=== PATIENT | female | born 1935 | race Caucasian/White ===

== ENCOUNTER 2024-04-16 22:42 | Inpatient (IN) | payer OTHER, SELFPAY ==
[2024-04-16] VITALS (14 sets, daily range): BP systolic 104–125; BP diastolic 62–90; BMI 25.0
[2024-04-16 17:01] LABS: % Basophils 0.3 % (0-2); % Eosinophils 0.8 % (0-6); % Immature Granulocytes 0.8 % (0-0.5); % Lymphocytes 16.9 % (20.5-51.1); % Monocytes 7.1 % (1.7-9.3); % Neutrophils 74.1 % (42.2-75.2); Absolute Eosinophils 0.1 10^3/uL (0-0.7); Absolute Immature Granulocytes 0.1 10^3/uL (0-0.05); Absolute Lymphocytes 2.4 10^3/uL (1.2-3.4); Absolute Neutrophils 10.5 10^3/uL (1.4-6.5); Hematocrit 32.5 % (37.0-47.0); Mean Corp Hgb Conc. 33.8 g/dL (33.0-37.0); Mean Corpuscular Hgb 30.8 pg (27.0-31.0); Mean Platelet Volume 10.2 fL (7.4-10.4); Nucleated Red Blood Cells % 0 %; Platelet Count 287 10^3/uL (130-400); Red Blood Cell Count 3.57 10^6/uL (4.20-5.40); Red Cell Dist. Width 12.7 % (11.5-14.5); White Blood Cell Count 14.2 10^3/uL (4.8-10.8)
[2024-04-16 17:30] LABS: Blood Urea Nitrogen 61 mg/dl (7-17); Estimated Creatinine Clearance 38 ml/min; Glucose 163 mg/dl (70-99); eGFR > 60.00
[2024-04-16 17:31] LABS: Calcium 8.7 mg/dl (8.4-10.2); Carbon Dioxide 22 mmol/L (22-30); Chloride 99 mmol/L (98-107); Sodium 133 mmol/L (135-145)
[2024-04-16 18:14] LABS: Urine Albumin 2+ (Neg - Trace); Urine Bilirubin Negative (Negative); Urine Character Slightly Cloudy (Clear); Urine Color Yellow; Urine Glucose Negative (Negative); Urine Ketone 1+ (Negative); Urine Leukocyte 3+ (Negative); Urine Nitrite Negative (Negative); Urine Occult Blood 1+ (Negative); Urine Specific Gravity 1.015 (<1.030); Urine Urobilinogen 1+ (Neg - 1+)
[2024-04-16 18:25] LABS: Urine Squamous Cell 0-2 /LPF (Few)
[2024-04-16 18:26] LABS: Urine Bacteria Many (Negative); Urine Red Blood Cell 0-2 /HPF (0-2); Urine White Cell >100 /HPF (0-5)
[2024-04-16 18:57] LABS: Albumin 3.5 g/dl (3.5-5.0); Blood Urea Nitrogen 61 mg/dl (7-17); Chloride 99 mmol/L (98-107); Potassium 4.4 mmol/L (3.5-5.1); Sodium 134 mmol/L (135-145); Total Bilirubin 0.8 mg/dl (0.2-1.3)
[2024-04-16 19:30] LABS: ALT (SGPT) 20 U/L (0-35); AST (SGOT) 27 U/L (14-36); Alkaline Phosphatase 153 U/L (38-126); Carbon Dioxide 21 mmol/L (22-30); Estimated Creatinine Clearance 38 ml/min; Glucose 139 mg/dl (70-99); Total Protein 6.2 g/dl (6.3-8.2); eGFR > 60.00
--- NOTE | 2024-04-16 19:50 | ED.GENMED ---
History of Present Illness
General
Chief Complaint: Weakness
Source: patient and pen[facility]iary records
Exam Limitations: clinical condition
Time Seen by Provider: 04/16/24 16:12
History of Present Illness
History of Present Illness:
89-year-old female who presents with change in mental status. Patient reportedly has had increased lethargy and poor appetite over the last week. No report of vomiting. Recent humerus fracture appreciated. Patient offers no complaints but her
history is somewhat limited
Past History
Past History
ED Past Medical History: HTN, Hypercholesterolemia and Other (Dementia)
ED Past Surgical History: Other
Social History
Tobacco: Non-smoker
Alcohol: None
Drug: None
Personal:
Living: with family
Employment: Retired
Family History
Family History: Other
Phy Exam
Physical Exam
Physical Exam:
CONSTITUTIONAL Vital signs reviewed, Patient alert but somnolent
HEAD atraumatic, normocephalic.
EYES eyelids normal to inspection, Extraocular muscles intact, Conjunctiva normal, Sclera normal.
NECK normal range of motion, Trachea midline, no jugular venous distention.
RESP no respiratory distress
BACK No obvious deformities, sacral wound noted
UPPER EXTREMITY right upper extremity in sling. Moderate to significant ecchymosis at various stages of healing noted to the humeral region down to the elbow.
NEURO Speech slow and low tone, No obvious focal motor deficits include, Cranial Nerves intact to screening exam.
SKIN Skin warm, dry, and normal in color.
Course
Orders/Labs/Results
Orders:
Orders
04/16/24 16:24
CT Head W/o Iv Contrast Urgent
Comment:
Reason For Exam: recent fall, change in ms
04/16/24 16:46
Basic Metabolic Panel Urgent
Complete Blood Count/With Diff Urgent
04/16/24 18:06
Urinalysis Reflex To Culture Urgent
Date Specimen was Collected: 04/16/24
Time Specimen was Collected: 18:05
Urine Microscopic Reflex Cult Urgent
Urine Culture Urgent
FINESSE Source: U
Specimen Description:
Date Specimen was Collected: 04/16/24
Time Specimen was Collected: 18:05
04/16/24 18:32
Comprehensive Metabolic Panel Urgent
04/16/24 19:50
0.9% Sodium Chloride 1000 ml [Nss] 1,000 ml IV BOLUS
CefTRIAXone [Rocephin] 1,000 mg IV NOW STA
04/16/24 21:40
US Periph Venous LOWER Ext LT Urgent
Comment:
Reason For Exam: Asymmetric Edema, r/o DVT
04/16/24 21:50
Blood Culture Q30M
FINESSE Source: Blood/Venous
Specimen Description:
Blood Culture Q30M
FINESSE Source: Blood/Venous
Specimen Description:
04/16/24 21:52
Lactic Acid Q4H
Comment: CANCEL 2nd LACTIC ACID IF 1st LACTIC ACID IS LESS THAN 2
04/16/24 21:58
Admit/Transfer Patient As Directed
Co-Sign Provider:
Level of Care: Inpatient admission
Assign to:: Telemetry
Physician / Group: Gunnar
Diagnosis: UTI, Azotemia, Weakness
Reason for Telemetry: Arrhythmia
Date to Stop Telemetry: 04/19/24
Time to Stop Telemetry: 11:00
Reason for Hospitalization: UTI, Azotemia, Weakness
Expected length of stay greater than two midnights?: Yes
ELOS- Estimated Length of Stay in days: 3
I certify the patient meets the requirements for IP care: Yes
PRN Pain Medication Management As Directed
May give lesser potent ordered pain med per pt: Yes
preference::
Protocol:: Medication orders for pain may be administered in a
manner that supports deferring to patient preference
when the pt is:
- Requesting an ordered lesser potent pain medication.
Least to most potent pain medications are defined
as: acetaminophen < NSAID < tramadol < opioids
(morphine, oxycodone, hydromorphone).
- Requesting a lesser dose of the same medication IF
ORDERED.
- Requesting a less intrusive route of administration
if both routes are prescribed by the provider (PO <
IV).
04/16/24 22:00
Code Status As Directed
Resuscitation Status: Do not resuscitate
Reached after discussion with pt or family/Healthcare POA: Yes
Flush (0.9% Sodium Chloride) [Flush (Nss)] See Dose Instructions IV PER PROTOCOL
DNR Bracelet Application ONCE
04/17/24 00:00
Lactic Acid Q4H
Comment: CANCEL 2nd LACTIC ACID IF 1st LACTIC ACID IS LESS THAN 2
04/19/24 11:00
DC Protocol for Telemetry ONCE
Abnormal Lab Results
04/16/24 04/16/24 04/16/24
16:46 18:06 18:32
WBC 14.2 H 10^3/uL
(4.8-10.8)
RBC 3.57 L 10^6/uL
(4.20-5.40)
Hgb 11.0 L g/dL
(12.0-16.0)
Hct 32.5 L %
(37.0-47.0)
Abs Immat Gran (auto) 0.1 H 10^3/uL
(0-0.05)
Absolute Neuts (auto) 10.5 H 10^3/uL
(1.4-6.5)
Absolute Monos (auto) 1.0 H 10^3/uL
(0.1-0.6)
Immature Gran % 0.8 H %
(0-0.5)
Lymphocytes % 16.9 L %
(20.5-51.1)
Sodium 133 L mmol/L 134 L mmol/L
(135-145) (135-145)
Carbon Dioxide 21 L mmol/L
(22-30)
BUN 61 H mg/dl 61 H mg/dl
(7-17) (7-17)
Glucose 163 H mg/dl 139 H mg/dl
(70-99) (70-99)
Alkaline Phosphatase 153 H U/L
(38-126)
Total Protein 6.2 L g/dl
(6.3-8.2)
Urine Ketones 1+ A
(Negative)
Ur Occult Blood Reflex 1+ A
(Negative)
Leukocyte Esterase Rfl 3+ A
(Negative)
Urine WBC (Reflex) >100 A /HPF
(0-5)
Urine Bacteria (Reflex) Many A
(Negative)
Urine Albumin (Reflex) 2+ A
(Neg - Trace)
04/16/24 16:46
04/16/24 18:32
Vital Signs
Initial and Last Documented VS:
Initial Vital Signs
Pulse Resp BP Pulse Ox
94 22 109/66 96
04/16/24 16:30 04/16/24 16:30 04/16/24 16:30 04/16/24 16:30
Last Documented Vital Signs
Temp Pulse Resp BP Pulse Ox
98.7 F 94 15 113/69 94
04/16/24 16:37 04/16/24 21:00 04/16/24 21:00 04/16/24 21:00 04/16/24 21:00
MDM/Problems Addressed
MDM/Problems Addressed:
Urinary tract affection, dehydration, change in mental status
*Pulse Oximetry
Patient hypoxic: no
*[employer] Interpretation
Rate: normal
Interpretation: normal
Rhythm: sinus
*Critical Care Note
Total Time (30-74mins, 75-104mins- exclusive of procedures): Not Applicable
Data Reviewed
Review of Other/Old Records Reveals: Records (Records reviewed and no previous urine cultures for review)
Patient Management
Discussion with other providers: Hospitalist
Escalation/DeEscalation of care consider admission/obs:
89-year-old female presents with change in mental status. Noted to have UTI and labs suggest volume contraction. Blood culture sent. Ceftriaxone ordered. Hospitalist later did note lower extremity edema and ultrasound does show DVT and
medications ordered by hospitalist.
ED Attending Note
-
Portions of this chart may have been created with voice recognition software.� Occasional wrong word or��sound alike� substitutions may have occurred due to the inherent limitations of voice recognition software.
Discharge Plan
Departure
Patient Disposition: Admit
Date of Disposition: 04/16/24
Time of Disposition: 19:51
Admit to: Med/Surg
Presentation/result/management discussed w/ accepting MD/DO: Hospitalist
Discharge Problem:
Acute alteration in mental status, Acute dehydration, Acute UTI, DVT (deep venous thrombosis)
Interventions
Interventions:
*Risk Screen - Suicide Last Done: 04/16/24 16:37
*General Assessment Last Done: 04/16/24 16:37
*Neglect/Abuse Screening Last Done: 04/16/24 16:37
ED- Fall Risk Assessment Last Done: 04/16/24 16:37
*ED COVID-19 Vaccine History Last Done: 04/16/24 16:37
ED- Cardiac Assessment Last Done: 04/16/24 16:37
ED- Neurological Assessment Last Done: 04/16/24 16:37
ED- Pulmonary Assessment Last Done: 04/16/24 16:37
[2024-04-16] MEDS: NSS 1000 IV (21:23)
[2024-04-16] MEDS: ROCEPHIN 1000 MG IV (21:23)
--- NOTE | 2024-04-16 22:11 | HPS.HSE ---
Addendum entered and electronically signed by Jose Maher DO 04/16/24 22:45:
Addendum: US positive for extensive DVT in the LLE. Lovenox dose now and continue 30mg q12 for treatment dose.
Original Note:
Family Physician
-
Family Physician: Flor Hodges
Chief Complaint
-
Weakness, Confusion
History of Present Illness
Patient is an 89y F with PMH significant for hypertension, GERD and senile dementia who presents to ED from [facility] for evaluation of weakness, worsening confusion and general failure to thrive. History obtained primarily from the
at the bedside. Patient recently moved into [facility] from home. She is completely non-ambulatory at baseline. About 3 weeks ago, shortly after moving in, she tried to get up to use the bathroom on her own and fell. This resulted in a
proximal R humerus fracture. This has been treated conservatively since that time.
reports poor oral intake, weakness and overall cognitive decline since relocating to [facility].
No cough, chest pain, N/V/D, etc. No fevers or chills.
Medical History
Past Medical History
Past Medical History: Reports Other
Additional Past Medical History:
Senile Dementia
Hypertension
GERD
Lumbar DDD / Spinal Stenosis
Chronic Ambulatory Dysfunction
Past Surgical History: Reports Other
Additional Past Surgical History:
MILD Procedure
T&A
Social History
Tobacco: Former Smoker (Quit smoking in the 1970s.)
Alcohol: Occasional
Drug: None
Living: Assisted Living
Family History
Family History: Not pertinent
Allergies / Home Medications
Allergies reflects when Allergies were last updated in [facility].
Home Medications with original date entered in [facility]
Allergy/Medication List:
Allergies
Allergy/AdvReac Type Severity Reaction Status Date / Time
No Known Allergies Allergy Verified 04/16/24 16:32
Home Medications
acetaminophen 500 mg tablet 1,000 mg PO TID 04/16/24
amlodipine 5 mg tablet 5 mg PO QPM 04/16/24
calcium 600 mg (as carbonate)-vitamin D3 10 mcg (400 unit) tablet (Calcium 600 + D(3)) 1 tab PO DAILY 04/16/24
cholecalciferol (vitamin D3) 50 mcg (2,000 unit) tablet 50 mcg PO DAILY 04/16/24
duloxetine 30 mg capsule,delayed release (Cymbalta) 30 mg PO DAILY 04/16/24
gabapentin 100 mg capsule 200 mg PO TID 04/16/24
metoprolol succinate 25 mg tablet,extended release 24 hr (Toprol XL) 25 mg PO DAILY 04/16/24
multivitamin with minerals-folic acid 12 mcg chewable tablet (Centrum Adults) 1 tab PO DAILY 04/16/24
nystatin 100,000 unit/gram topical powder 1 applic topical BID 04/16/24
omeprazole 20 mg capsule,delayed release 20 mg PO DAILY 04/16/24
oxycodone 5 mg tablet 5 mg PO TID 04/16/24
polyethylene glycol 3350 17 gram oral powder packet (Miralax) 17 g PO DAILY 04/16/24
vit C 250 mg-vit E 90 mg-zinc 40 mg-copper 1 [id number] capsule (PreserVision AREDS-2) 1 tab PO DAILY 04/16/24
Review of Systems
-
History Source: Patient and Family
A 12 point ROS was completed and negative except as noted: Yes
Constitutional: Reports Fatigue; Denies Fever or Chills
Respiratory: Denies Cough or Trouble Breathing
Cardiac: Denies Chest Pain or Palpitations
Abdomen/GI: Denies Abdominal Pain, Nausea, Vomiting or Diarrhea
: Denies Dysuria, Frequency or Flank Pain
Musculoskeletal: Reports Joint Pain; Denies Edema
Neurological: Denies Dizzy or Headache
Psych: Denies Depression or Anxiety
Physical Exam
Vital Signs
Vital Signs
Temp Pulse Resp BP Pulse Ox
98.7 F 94 15 113/69 94
04/16/24 16:37 04/16/24 21:00 04/16/24 21:00 04/16/24 21:00 04/16/24 21:00
Physical Exam
General: Other (89y F in no acute distress. Awake and interactive. Not oriented to place / time.)
HEENT: Other (Dry MM. Neck supple.)
Respiratory: Other (Decreased BS at bases - otherwise clear.)
Cardiac: S1/S2 and Regular Rhythm; No Murmur
GI: Soft, Non Tender, Non Distended and Normal Bowel Sounds
Musculoskeletal: No Clubbing, No Cyanosis and Other (Edema of the LLE to the knee. No erythema or increased warmth. LUE in sling with ecchymosis of the arm and lateral chest wall.)
Neuro: Awake and Alert; No Oriented
Psych: No Agitated or Anxious
Laboratory Results
-
04/16/24 16:46
04/16/24 18:32
Laboratory Results
Total Bilirubin 0.8 mg/dl (0.2-1.3) 04/16/24 18:32
AST 27 U/L (14-36) 04/16/24 18:32
ALT 20 U/L (0-35) 04/16/24 18:32
Alkaline Phosphatase 153 U/L (38-126) H 04/16/24 18:32
Impression/Plan
-
A/P: Patient is an 89y F with PMH significant for dementia and hypertension who presents to ED from [facility] for evaluation of overall failure to thrive.
UTI - Present on Admission
- Admit for further evaluation and treatment.
- UA consistent with infection. Chronically incontinent.
- Ceftriaxone pending culture data.
- Follow for any clinical changes.
Senile Dementia
Failure to Thrive
Anorexia
Anhedonia
- Symptoms worsening since move into facility per .
- Not sure how much this is related to possible UTI as noted above.
- Trial of mirtazapine for mood / appetite stimulation.
- PT / OT evaluations.
- Encourage PO intake.
Azotemia
- BUN = 61 with reported poor oral intake x weeks.
- IVF support and follow for improvement in labs / lytes.
- Encourage PO intake as noted.
Right Humerus Fracture
- Stable. Maintain sling. OT evaluation.
- Stop oxycodone for pain control - ? contributing to worsened confusion / fatigue.
LLE Edema
- Asymmetric LLE edema appreciated on exam.
- No evidence of injury / trauma / infection / etc.
- Check Doppler to rule out DVT given immobility.
Benign Hypertension
- Stable. Continue metoprolol with holding parameters.
Lumbar DDD / Spinal Stenosis
Chronic Ambulatory Dysfunction
- notes that patient has been completely unable to ambulate for some time now.
- PT / OT evaluations.
- CM eval - may benefit from higher level of care chronically?
DVT Prophylaxis: Subcut Heparin
Code Status: DNR
[2024-04-16] MEDS: LOVENOX 30 MG SC (23:38)
[2024-04-17] VITALS (14 sets, daily range): BP systolic 104–136; BP diastolic 59–80; PULSE 80–85; O2SAT 96; BMI 24.7; BMI 24.0
[2024-04-17] MEDS: NSS 1000 IV (01:28)
[2024-04-17] MEDS: NEURONTIN PO (01:29)
[2024-04-17] MEDS: TYLENOL 1000 MG PO ×4 (01:54→22:32)
[2024-04-17] MEDS: REMERON 7.5 MG PO ×2 (01:54→22:26)
[2024-04-17] MEDS: SENOKOT 17.2 MG PO ×2 (01:54→22:31)
[2024-04-17 04:54] LABS: Hematocrit 31.3 % (37.0-47.0); Hemoglobin 10.4 g/dL (12.0-16.0); Mean Corp Hgb Conc. 33.2 g/dL (33.0-37.0); Mean Corpuscular Hgb 31.3 pg (27.0-31.0); Mean Corpuscular Volume 94.3 fL (81.0-99.0); Mean Platelet Volume 10.5 fL (7.4-10.4); Platelet Count 245 10^3/uL (130-400); Red Blood Cell Count 3.32 10^6/uL (4.20-5.40); Red Cell Dist. Width 12.7 % (11.5-14.5); White Blood Cell Count 11.8 10^3/uL (4.8-10.8)
[2024-04-17 05:15] LABS: Blood Urea Nitrogen 56 mg/dl (7-17); Calcium 9.1 mg/dl (8.4-10.2); Carbon Dioxide 20 mmol/L (22-30); Chloride 104 mmol/L (98-107); Estimated Creatinine Clearance 50 ml/min; Glucose 125 mg/dl (70-99); Magnesium 2.1 mg/dl (1.6-2.3); Sodium 134 mmol/L (135-145); eGFR > 60.00
[2024-04-17 05:44] LABS: TSH Reflex To Free T4 0.18 uIU/ml (0.47-4.68)
[2024-04-17 06:13] LABS: Free T4 1.89 ng/dl (0.78-2.19)
[2024-04-17] MEDS: NEURONTIN 200 MG PO ×3 (08:43→22:25)
[2024-04-17] MEDS: TOPROL XL 25 MG PO (08:43)
--- NOTE | 2024-04-17 10:27 | WOUNDNOTE ---
WO RN note: Patient admitted with failure to thrive, left leg DVT
See H&P for complete history.
PMH: UTI, dementia, bedbound, fractured right humerus
Wound Location and type/assessment: Patient admitted with unstageable sacral PI. Wound has thick, adherent eschar and scant serous drainage. Mild odor noted. Distal to wound is additional non-blanchable reddened skin that may evolve to DTI. Wound
assessed along with Dr. Vazquez. Heels intact.
Appetite: Per chart review poor.
Pressure redistribution devices in place: Will order air mattress. Patient off-loaded on right semi-side lying position. Heels off-loaded on pillows.
Plan: Will recommend use of Dakins and Santyl at this time. Dr. Vazquez to discuss goals of care /surgical consult with . Patient has several comorbidities including poor intake and bedbound status. Wounds may worsen and new wounds may
develop even with optimal care. RN Max given update. Updated care plan and will follow as needed.
Note to case management of equipment requested for discharge:
Recommend follow up at wound care center upon discharge.
--- NOTE | 2024-04-17 11:38 | W.PN.HOSP.TC ---
Addendum entered and electronically signed by Tyron Vazquez MD 04/17/24 12:51:
Called spouse to update. No response. Left voicemail. Will consult palliative care.
Original Note:
Today's Communication/Plan
-
Switch fluids to LR
IV antibiotic
Started on Remeron
Wound care
Continue with offloading
Monitor mentation p.o. intake
Assessment / Plan
Assessment / Plan
General: Other (89y F in no acute distress. Awake and interactive. Not oriented to place / time.)
HEENT: Other (Dry MM. Neck supple.)
Respiratory: Other (Decreased BS at bases - otherwise clear.)
Cardiac: S1/S2 and Regular Rhythm; No Murmur
GI: Soft, Non Tender, Non Distended and Normal Bowel Sounds
Musculoskeletal: No Clubbing, No Cyanosis and Other (Edema of the LLE to the knee. No erythema or increased warmth. LUE in sling with ecchymosis of the arm and lateral chest wall.)
Neuro: Awake and Alert; No Oriented
Psych: No Agitated or Anxious
A/P: Patient is an 89y F with PMH significant for dementia and hypertension who presents to ED from [facility] for evaluation of overall failure to thrive.
Sepsis likely secondary to UTI versus low likelihood of bacteremia-poa
- UA consistent with infection. Chronically incontinent.
- Ceftriaxone pending culture data. follow up on bcx data
- Follow for any clinical changes.
Senile Dementia
Failure to Thrive
Anorexia
Anhedonia
- Symptoms worsening since move into facility per .
- Not sure how much this is related to possible UTI as noted above.
- Trial of mirtazapine for mood / appetite stimulation.
- PT / OT evaluations.
- Encourage PO intake. Speech evaluation
Acute hypoxic respiratory insufficiency likely secondary to atelectasis
-Check a chest x-ray. Wean oxygen as tolerated. Currently on 4 L.
Azotemia
- BUN = 61 with reported poor oral intake x weeks.
- IVF support and follow for improvement in labs / lytes.
- Encourage PO intake as noted.
Right Humerus Fracture
- Stable. Maintain sling. OT evaluation.
- Stop oxycodone for pain control - ? contributing to worsened confusion / fatigue.
LLE extensive DVT provided due to decrease mobility
-Started on Lovenox-eventually switch to DOAC
Benign Hypertension
- Stable. Continue metoprolol with holding parameters.
Lumbar DDD / Spinal Stenosis
Chronic Ambulatory Dysfunction
- notes that patient has been completely unable to ambulate for some time now.
- PT / OT evaluations.
- CM eval - may benefit from higher level of care chronically?
Unstageable Sacral Pressure injury-POA
-evaluated with wound care team
-cont with wound care for now.
Subclinical hyperthyroidism
-repaet TFTs in 4-5 weeks
Mild hyponatremia likely 2/2 hypovolemia
-improved
DVT Prophylaxis: Subcut LOVENOX
Code Status: DNR
Anticipated Discharge: > 48 hours
Subjective/Interval History
-
Date of Service: April 17, 2024
awake but confused
denies pain
Objective Data
-
Labs:
Laboratory Results
04/17/24
04:34
WBC 11.8 H
Hgb 10.4 L
Hct 31.3 L
Plt Count 245
Sodium 134 L
Potassium 4.0
Chloride 104
Carbon Dioxide 20 L
BUN 56 H
Creatinine 0.6
Glucose 125 H
Calcium 9.1
Vital Signs:
Vital Signs
Temp Pulse Resp BP Pulse Ox
97.4 F 70 15 128/76 95
04/17/24 08:52 04/17/24 11:00 04/17/24 11:00 04/17/24 08:43 04/17/24 10:00
I&O
04/16/24 04/17/24 04/18/24
06:59 06:59 06:59
Output Total 400 / 400
Balance -400 / -400
[2024-04-17] MEDS: NSS IV (12:01)
[2024-04-17] MEDS: LR 1000 IV (12:05)
[2024-04-17] MEDS: LOVENOX 30 MG SC ×2 (12:06→22:32)
[2024-04-17] MEDS: DAKIN'S SOLUTION 0.125% 1/4 STRENGTH TOPICAL (17:15)
[2024-04-17] MEDS: SANTYL OINTMENT TOPICAL (17:16)
--- NOTE | 2024-04-17 17:29 | PTCARENOTE ---
Rec'd pt from previous nurse. Pt denies pain. Pt on bed rest. Pt with rue sling in place. Pt lethargic, drowsy, able to respond to simple questions. Pt call souza is within reach, pt does not ring, rounding in place. will cont to monitor.
--- NOTE | 2024-04-17 17:42 | PTOTSP ---
ST Acute Care Evaluation
Pt currently presents with clinical signs of mild to moderate pharyngeal dysphagia characterized by consistent immediate coughing with small and large quantities of thin liquids as well as difficulties ingesting whole pills.
Recommendations:
- Continue with regular solids; downgrade to MODERATELY THICK LIQUIDS (NO STRAWS); with all meds CRUSH IN PUREE.
- Aspiration and reflux precautions: Pt must be fully awake, alert, and upright for all PO intake and for at least 60 minutes after PO intake; small bites; small sips; no sequential sips; alternate solids/liquids; encourage PO intake.
- HEALTH AND SAFETY TECHNICIAN to f/u re: diet tolerance, to trial liquid upgrades, and to determine if pt would benefit from an instrumental swallow study.
--- NOTE | 2024-04-17 19:18 | PTCARENOTE ---
report called to unit, pt transferred without issue.
[2024-04-17] MEDS: ROCEPHIN 1000 MG IV (22:27)
[2024-04-17] MEDS: STERILE WATER FOR INJECTION 10 ML IV (22:28)
[2024-04-18 02:58] VITALS: BP 134/79
[2024-04-18 06:00] VITALS: BMI 24.5
[2024-04-18 07:43] VITALS: BP 129/73
[2024-04-18 07:43] LABS: % Basophils 0.6 % (0-2); % Eosinophils 2.5 % (0-6); % Immature Granulocytes 1.2 % (0-0.5); % Lymphocytes 22.9 % (20.5-51.1); % Monocytes 8.5 % (1.7-9.3); % Neutrophils 64.3 % (42.2-75.2); Absolute Basophils 0.1 10^3/uL (0-0.2); Absolute Eosinophils 0.3 10^3/uL (0-0.7); Absolute Immature Granulocytes 0.1 10^3/uL (0-0.05); Absolute Lymphocytes 2.4 10^3/uL (1.2-3.4); Absolute Monocytes 0.9 10^3/uL (0.1-0.6); Absolute Neutrophils 6.7 10^3/uL (1.4-6.5); Hematocrit 33.1 % (37.0-47.0); Hemoglobin 10.9 g/dL (12.0-16.0); Mean Corp Hgb Conc. 32.9 g/dL (33.0-37.0); Mean Corpuscular Hgb 30.5 pg (27.0-31.0); Mean Corpuscular Volume 92.7 fL (81.0-99.0); Mean Platelet Volume 10.5 fL (7.4-10.4); Nucleated Red Blood Cells % 0 %; Platelet Count 270 10^3/uL (130-400); Red Blood Cell Count 3.57 10^6/uL (4.20-5.40); White Blood Cell Count 10.4 10^3/uL (4.8-10.8)
[2024-04-18] MEDS: SANTYL OINTMENT TOPICAL (08:00)
[2024-04-18] MEDS: DAKIN'S SOLUTION 0.125% 1/4 STRENGTH TOPICAL (08:00)
[2024-04-18 08:35] LABS: Blood Urea Nitrogen 35 mg/dl (7-17); Calcium 9.7 mg/dl (8.4-10.2); Carbon Dioxide 20 mmol/L (22-30); Chloride 106 mmol/L (98-107); Estimated Creatinine Clearance 50 ml/min; Glucose 86 mg/dl (70-99); Potassium 3.7 mmol/L (3.5-5.1); Sodium 138 mmol/L (135-145); eGFR > 60.00
[2024-04-18] MEDS: TOPROL XL 25 MG PO (10:43)
[2024-04-18] MEDS: NEURONTIN 200 MG PO ×3 (10:43→23:41)
[2024-04-18] MEDS: TYLENOL 1000 MG PO ×3 (10:43→23:43)
[2024-04-18] MEDS: LOVENOX 30 MG SC ×2 (10:45→23:59)
[2024-04-18 11:00] VITALS: BP 123/72
--- NOTE | 2024-04-18 13:32 | W.CON.PAL ---
Consultation
-
Date/Time Consultation Requested: 04/17/24
Date/Time Consultation Performed: 04/18/24
Requesting Provider: Dr. Vazquez
Performing Provider: Dr. Chacko
Reason for Consult: Goals of Care Discussion
Primary Diagnosis: End Stage Dementia
Consult Requested By: Patient's Physician
Reason for Admission
Illness Course/HPI
Kaitlyn is a 89 y/o female with advanced dementia, non verbal and dependant for care at [facility] who was admitted to hospital with hypoxia. Recently family moved her from [facility] to [facility] care at [facility], had a recent fall with right humerus
fracture, developed pressure sore, poor oral intake, weight loss, and now also with LLE DVT.
Goals of Care Discussion
-
Patient able to participate in discussion at time of visit: No
Patient Goals
Spoke with patient's spouse over the phone - he can be best reached at his cell [phone] (he uses voice to text on his cellphone due to hearing issue)
Reviewed Kaitlyn's condition, recommended hospice care with focus on comfot.
Spouse is in agreement that Kaitlyn's overall condition has been declining, and agreees to meet with hospice. He would want her to complete antibiotics
he is considering bringing her back to [facility] with him with caregiver support.
Code status DNR
Pain & Symptom Assessment
-
patient unable to provide ros due to dementia
Objective Data
-
Objective Data:
Vital Signs
Temp Pulse Resp BP Pulse Ox
98.1 F 93 19 123/72 97
04/18/24 11:00 04/18/24 11:00 04/18/24 11:00 04/18/24 11:00 04/18/24 11:00
Laboratory Results
04/18/24 07:16
04/18/24 07:16
Total Protein 6.2 g/dl (6.3-8.2) L 04/16/24 18:32
Albumin 3.5 g/dl (3.5-5.0) 04/16/24 18:32
Free T4 1.89 ng/dl (0.78-2.19) 04/17/24 04:34
Urine Color Yellow 04/16/24 18:06
Urine Clarity Slightly cloudy (Clear) 04/16/24 18:06
Urine pH 6.0 (5.0-9.0) 04/16/24 18:06
Ur Specific Chadwick 1.015 (<1.030) 04/16/24 18:06
Urine Ketones 1+ (Negative) A 04/16/24 18:06
Urine Bilirubin Negative (Negative) 04/16/24 18:06
Palliative Performance Scale
Palliative Performance Scale:
PPS Level Ambulation Activity & Evidence of Disease Self Care Intake Conscious Level
100% Full Normal Activity & Work; Full Intake Full
No Evidence of Disease
90% Full Normal Activity & Work; Full Normal Full
Some Evidence of Disease
80% Full Normal Activity with Effort Full Normal or Full
Some Evidence of Disease Reduced
70% Reduced Unable Normal Job/Work Full Normal or Full
Significant Disease Reduced
60% Reduced Unable Hobby/Housework Occasional Normal or Full or Confusion
Significant Disease Assistance Reduced
50% Mainly Sit/Lie Unable to do Any Work Considerable Normal or Full or Confusion
Extensive Disease Assistance Req'd Reduced
40% Mainly in Bed Unable to do Most Activity Mainly Assistance Normal or Full or Drowsy;
Extensive Disease Reduced +/- Confusion
30% Totally Bed Unable to do Any Activity Total Care Normal or Full or Drowsy;
Bound Extensive Disease Reduced +/- Confusion
20% Totally Bed Bound Unable to do Any Activity Total Care Minimal to Full or Drowsy;
Extensive Disease Sips +/- Confusion
10% Totally Bed Bound Unable to do Any Activity Total Care Mouth Care Drowsy or Coma;
Extensive Disease Only +/- Confusion
0%
PPS Score Level:
Physical Exam
-
appears comfortable, non verbal, no acute distress. no overt signs of pain
Assessment / Plan
-
Assessment/Plan:
Hospice referral
Total floor time, discussion with family - 40 min s
--- NOTE | 2024-04-18 14:24 | CM ---
executive kitchen manager reviewed patient's chart and met with patient and spoke with patient's spouse, Eloy by phone, , patient is a halfway resident at the [facility], per spouse patient is bedbound, shoe parts caser received a consult for
hospice, shoe parts caser reviewed hospice options with patient's spouse and he has selected [facility], referral sent through [facility]
PCP: Kwasi Hodges
Pharmacy: [facility]
Plan; Hospice referral sent, per hospice they left a message for spouse.
--- NOTE | 2024-04-18 14:24 | W.PN.HOSP.TC ---
Addendum entered and electronically signed by Tyron Vazquez MD 04/18/24 15:57:
Discussed with patient Eloy at bedside in details. Explained palliative versus hospice approach. Eloy has agreed for hospice. Close on hospice consulted.
Original Note:
Today's Communication/Plan
-
Hospice
Switch antibiotics
Await for hospice discussion with family
Assessment / Plan
Assessment / Plan
General: Other (89y F in no acute distress. Awake but confused.
HEENT: Dry MM. Neck supple.
Respiratory: dec bs
Cardiac: S1/S2 and Regular Rhythm; No Murmur
GI: Soft, Non Tender, Non Distended and Normal Bowel Sounds
Musculoskeletal: No Clubbing, No Cyanosis and Other (Edema of the LLE to the knee. No erythema or increased warmth. RUE in sling with ecchymosis of the arm and lateral chest wall.)
Neuro: Awake and Alert; No Oriented
Psych: No Agitated or Anxious
A/P: Patient is an 89y F with PMH significant for dementia and hypertension who presents to ED from [facility] for evaluation of overall failure to thrive.
Sepsis likely secondary to gram positive UTI
- UA consistent with infection. Chronically incontinent.
- Urine culture with gram-positive bacilli. Cultures will be signed out fundoplications susceptibility results
- Follow for any clinical changes. Start patient on vancomycin DC ceftriaxone
Senile Dementia
Failure to Thrive
Anorexia
Anhedonia
- Symptoms worsening since move into facility per .
- Not sure how much this is related to possible UTI as noted above.
- Trial of mirtazapine for mood / appetite stimulation.
- PT / OT evaluations.
- Encourage PO intake. Speech evaluation
Acute hypoxic respiratory insufficiency likely secondary to atelectasis
-Check a chest x-ray. Wean oxygen as tolerated. Currently on 4 L.
Azotemia
- BUN = 61 with reported poor oral intake x weeks.
- IVF support and follow for improvement in labs / lytes.
- Encourage PO intake as noted. Improving
Right Humerus Fracture
- Stable. Maintain sling. OT evaluation.
- Stop oxycodone for pain control - ? contributing to worsened confusion / fatigue.
LLE extensive DVT provided due to decrease mobility
-Started on Lovenox-eventually switch to DOAC
Benign Hypertension
- Stable. Continue metoprolol with holding parameters.
Lumbar DDD / Spinal Stenosis
Chronic Ambulatory Dysfunction
- notes that patient has been completely unable to ambulate for some time now.
- PT / OT evaluations.
- CM eval - may benefit from higher level of care chronically?
Unstageable Sacral Pressure injury-POA
-evaluated with wound care team
-cont with wound care for now.
Subclinical hyperthyroidism
-repaet TFTs in 4-5 weeks
Mild hyponatremia likely 2/2 hypovolemia
-improved
DVT Prophylaxis: Subcut LOVENOX
Code Status: DNR
Spouse agreed for hospice. Consult placed.
Anticipated Discharge: > 48 hours
Subjective/Interval History
-
Date of Service: April 18, 2024
mumbles few words
denies pain
Objective Data
-
Labs:
Laboratory Results
04/18/24
07:16
WBC 10.4
Hgb 10.9 L
Hct 33.1 L
Plt Count 270
Sodium 138
Potassium 3.7
Chloride 106
Carbon Dioxide 20 L
BUN 35 H
Creatinine 0.5 L
Glucose 86
Calcium 9.7
Vital Signs:
Vital Signs
Temp Pulse Resp BP Pulse Ox
98.1 F 93 19 123/72 97
04/18/24 11:00 04/18/24 11:00 04/18/24 11:00 04/18/24 11:00 04/18/24 11:00
I&O
04/17/24 04/18/24 04/19/24
06:59 06:59 06:59
Output Total 400 / 400 850 / 850
Balance -400 / -400 -850 / -850
--- NOTE | 2024-04-18 14:37 | HOSPNOTE ---
Addendum entered by Janneth Alvarenga RN 04/18/24 16:50:
Spoke to Attending and CM. Plan is to evaluate patient tomorrow for GIP VS home hospice. Also will speak with spouse in person to provide hospice information since he is hard of hearing and has difficulty hearing over the phone. More information to
follow after evaluation/discussion.
Original Note:
Call placed to spouse to discuss hospice and the philosophy. I had to leave a message. Referral received and will continue to follow and update. More information to follow when I speak with spouse.
--- NOTE | 2024-04-18 14:53 | PHA.VAN.IN ---
Assessment
- Assessment
Renal Function: Unknown baseline
Maximum Temperature: 98.7
AUC Dosing Plan
- Dosing Variables
Dosing Weight (kg): 60.8
Dosing CrCl (ml/min): 50
Vd coefficient (L/kg): 0.7
- Empiric Dosing
Initial / Loading Dose: vancomycin 1250 mg x 1
Maintenance Regimen: vancomycin 1000 mg q24H
Estimated Peak (mcg*h/mL): 524
Estimated Trough (mcg/ml): 12.2
Estimated Half Life (H): 15.1
- Monitoring
No levels ordered at this time: consider levels in next few days
Pharmacokinetics Vancomycin I
- -
Patient Age: 89
Patient Sex: Female
Vancomycin Day #: 1
Indication: Genito-Urinary Tract
Requesting Provider: Tyron Vazquez
Pertinent Antimicrobial Allergies:
nkda
Height / Weight:
Height 5 ft 2 in
Actual Weight 60.81 kg
IBW in k.1
Adjusted BW in k.4
- Vital Signs / Lab Results
Temp Pulse Resp BP Pulse Ox
98.1 F 93 19 123/72 97
04/18/24 11:00 04/18/24 11:00 04/18/24 11:00 04/18/24 11:00 04/18/24 11:00
Lab Results - Hematology
04/16/24 04/17/24 04/18/24
16:46 04:34 07:16
WBC 14.2 H 11.8 H 10.4
Lab Results - Chemistry
04/16/24 04/16/24 04/17/24
16:46 18:32 04:34
BUN 61 H 61 H 56 H
Creatinine 0.8 0.8 0.6
Estimated Creat Clear 38 38 50
Albumin Cancelled 3.5
04/18/24
07:16
BUN 35 H
Creatinine 0.5 L
Estimated Creat Clear 50
Albumin
04/16/24 04/17/24
21:52 00:00
Lactic Acid 1.0 Cancelled
Lab Results - Urine
04/16/24
18:06
Urine Nitrite (Reflex) Negative
Leukocyte Esterase Rfl 3+ A
Urine WBC (Reflex) >100 A
Ur Squamous Epith Cells 0-2
Urine Bacteria (Reflex) Many A
Microbiology Results
04/16/24 18:06 Urine Culture - Final
Urine Additional testing on request
04/17/24 01:59 MRSA Screen - Final
Nose No Methicillin Resistant Staphylococcus aureus isolated.
04/16/24 21:50 Blood Culture - Preliminary
Blood/Venous No Growth in 24 hours- Final report to follow
04/16/24 21:50 Blood Culture - Preliminary
Blood/Venous No Growth in 24 hours- Final report to follow
[2024-04-18 15:00] VITALS: BP 137/72
--- NOTE | 2024-04-18 16:22 | PN.CDI ---
CDI
- -
CDI:
Physician Documentation Request
Admit Date: 04/16/24 22:42
Dear Doctor George,
04/16 Peripheral venous US of LLE showed Extensive occlusive thrombus extending contiguously from the left common femoral vein through the left posterior tibial. vein.
H&P 'US positive for extensive DVT in the LLE'
Please clarify which of the following accurately represents the acuity of the DVT
____ Acute
Chronic
____ Other
Use of terms such as suspected, likely, concern for, or probable (associated with a specific diagnosis that is being evaluated, monitored, or treated as if it exists) are acceptable and can be coded in the inpatient setting, when documented at the
time of discharge.
Thank you,
Savannah Rodriguez RN, BSN
CDI Specialist
tiger text
Please use your independent medical judgment in providing your response.
--- NOTE | 2024-04-18 16:30 | PN.CDI ---
CDI
- -
CDI:
Physician Documentation Request
Admit Date: 04/16/24 22:42
Dear Doctor George,
H&P states ' ..presents to ED from [facility] for evaluation of weakness, worsening confusion and general failure to thrive'
PMH includes senile dementia.
Patient found to be septic, with UTI and DVT.
Could you please clarify in the Progress Notes is the most likely etiology of the confusion/altered mental status.
Encephalopathy - indicate type, such as metabolic, toxic, septic, alcoholic, anoxic, hypertensive etc. due to a specific condition such as UTI, CVA, hyponatremia etc.
Senile Dementia with acute delirium -
Acute Delirium - indicate known or suspected etiology such as postoperative, due to opioids or other drugs etc. Can also indicate unknown or mixed etiologies.
Senile Dementia - any associated behavioral disturbances (aggressive, combative or violent behavior)
Other
Use of terms such as suspected, likely, concern for, or probable (associated with a specific diagnosis that is being evaluated, monitored, or treated as if it exists) are acceptable and can be coded in the inpatient setting, when documented at the
time of discharge.
Thank you,
Savannah Rodriguez RN, BSN
CDI Specialist
tiger text
Please use your independent medical judgment in providing your response.
[2024-04-18] MEDS: VANCOCIN 275 MG IV (18:03)
[2024-04-18 19:25] VITALS: BP 125/74
[2024-04-18 23:38] VITALS: BP 140/71
[2024-04-18] MEDS: REMERON 7.5 MG PO (23:42)
[2024-04-18] MEDS: SENOKOT 17.2 MG PO (23:43)
[2024-04-19] VITALS (7 sets, daily range): BP systolic 113–145; BP diastolic 57–79; BMI 23.3
[2024-04-19] MEDS: SANTYL OINTMENT 1 APPLIC TOPICAL (06:14)
[2024-04-19] MEDS: DAKIN'S SOLUTION 0.125% 1/4 STRENGTH 473 ML TOPICAL (06:17)
[2024-04-19 08:38] LABS: % Basophils 0.6 % (0-2); % Eosinophils 3.6 % (0-6); % Immature Granulocytes 1.2 % (0-0.5); % Lymphocytes 25.3 % (20.5-51.1); % Monocytes 10.2 % (1.7-9.3); % Neutrophils 59.1 % (42.2-75.2); Absolute Basophils 0.1 10^3/uL (0-0.2); Absolute Eosinophils 0.3 10^3/uL (0-0.7); Absolute Immature Granulocytes 0.1 10^3/uL (0-0.05); Absolute Lymphocytes 2.2 10^3/uL (1.2-3.4); Absolute Monocytes 0.9 10^3/uL (0.1-0.6); Absolute Neutrophils 5.1 10^3/uL (1.4-6.5); Hematocrit 32.7 % (37.0-47.0); Hemoglobin 10.8 g/dL (12.0-16.0); Mean Corpuscular Hgb 30.6 pg (27.0-31.0); Mean Corpuscular Volume 92.6 fL (81.0-99.0); Mean Platelet Volume 10.7 fL (7.4-10.4); Nucleated Red Blood Cells % 0 %; Platelet Count 248 10^3/uL (130-400); Red Blood Cell Count 3.53 10^6/uL (4.20-5.40); Red Cell Dist. Width 13.1 % (11.5-14.5); White Blood Cell Count 8.6 10^3/uL (4.8-10.8)
--- NOTE | 2024-04-19 08:45 | HOSPNOTE ---
Spoke to on phone this am. He willmeet with hospice nurse to discuss hospice at 12:30p in patient room this afternoon.
[2024-04-19 08:50] LABS: Blood Urea Nitrogen 28 mg/dl (7-17); Calcium 9.6 mg/dl (8.4-10.2); Carbon Dioxide 22 mmol/L (22-30); Chloride 109 mmol/L (98-107); Estimated Creatinine Clearance 50 ml/min; Glucose 92 mg/dl (70-99); Potassium 3.8 mmol/L (3.5-5.1); Sodium 143 mmol/L (135-145); eGFR > 60.00
[2024-04-19] MEDS: NEURONTIN 200 MG PO ×3 (09:16→22:15)
[2024-04-19] MEDS: TYLENOL 1000 MG PO ×3 (09:17→22:18)
[2024-04-19] MEDS: TOPROL XL 25 MG PO (09:17)
--- NOTE | 2024-04-19 09:37 | PHA.VAN.FU ---
Vancomycin Assessment / Plan
- Assessment
Renal Function: Stable
WBC's are: Trending Down
In the past 24 hrs, patient has been: Afebrile
- Dosing Plan
Continue: Vanc 1000mg IV q24H
- Monitoring Plan
No level(s) ordered at this time: Consider levels after 2/3 1800 dose.
- Follow Up
Pharmacy will continue to follow.
Vancomycin Follow UP
- -
Patient Age: 89
Patient Sex: Female
Vancomycin Day #: 2
Indication: Genito-Urinary Tract
Requesting Provider: Tyron Vazquez
Pertinent Antimicrobial Allergies:
nkda
Height / Weight:
Height 5 ft 2 in
Actual Weight 57.663 kg
IBW in k.1
Adjusted BW in k.4
- Vital Signs / Lab Results
Temp Pulse Resp BP Pulse Ox
98.4 F 83 16 145/79 96
04/19/24 07:00 04/19/24 09:17 04/19/24 07:00 04/19/24 09:17 04/19/24 07:00
Lab Results - Hematology
04/16/24 04/17/24 04/18/24
16:46 04:34 07:16
WBC 14.2 H 11.8 H 10.4
04/19/24
07:52
WBC 8.6
Lab Results - Chemistry
04/16/24 04/16/24 04/17/24
16:46 18:32 04:34
BUN 61 H 61 H 56 H
Creatinine 0.8 0.8 0.6
Estimated Creat Clear 38 38 50
Albumin Cancelled 3.5
04/18/24 04/19/24
07:16 07:52
BUN 35 H 28 H
Creatinine 0.5 L 0.5 L
Estimated Creat Clear 50 50
Albumin
04/16/24 04/17/24
21:52 00:00
Lactic Acid 1.0 Cancelled
Lab Results - Urine
04/16/24
18:06
Urine Nitrite (Reflex) Negative
Leukocyte Esterase Rfl 3+ A
Ur Squamous Epith Cells 0-2
Microbiology Results
04/16/24 21:50 Blood Culture - Preliminary
Blood/Venous No Growth in 48 hours- Final report to follow
04/16/24 21:50 Blood Culture - Preliminary
Blood/Venous No Growth in 48 hours- Final report to follow
04/16/24 18:06 Urine Culture - Final
Urine Additional testing on request
04/17/24 01:59 MRSA Screen - Final
Nose No Methicillin Resistant Staphylococcus aureus isolated.
[2024-04-19] MEDS: LOVENOX 30 MG SC ×2 (11:26→22:32)
--- NOTE | 2024-04-19 11:34 | W.PN.HOSP.TC ---
Addendum entered and electronically signed by Tyron Vazquez MD 04/19/24 11:38:
Senile dementia with acute delirium
Acute LLE extensive DVT
Original Note:
Today's Communication/Plan
-
Encourage increase p.o. intake
DC fluids
Continue with antibiotic
Await for culture data
Lovenox
Await hospice and family discussion and decision
Assessment / Plan
Assessment / Plan
General: Other (89y F in no acute distress. Awake but confused.
HEENT: Dry MM. Neck supple.
Respiratory: dec bs
Cardiac: S1/S2 and Regular Rhythm; No Murmur
GI: Soft, Non Tender, Non Distended and Normal Bowel Sounds
Musculoskeletal: No Clubbing, No Cyanosis and Other (Edema of the LLE to the knee. No erythema or increased warmth. RUE in sling with ecchymosis of the arm and lateral chest wall.)
Neuro: Awake No Oriented
Psych: No Agitated or Anxious
A/P: Patient is an 89y F with PMH significant for dementia and hypertension who presents to ED from [facility] for evaluation of overall failure to thrive.
Sepsis likely secondary to gram positive UTI
- UA consistent with infection. Chronically incontinent.
- Urine culture with gram-positive bacilli. Cultures will be signed out identification and susceptibility results
- Follow for any clinical changes. Start patient on vancomycin DC ceftriaxone
Senile Dementia
Failure to Thrive
Anorexia
Anhedonia
- Symptoms worsening since move into facility per .
- Not sure how much this is related to possible UTI as noted above.
- Trial of mirtazapine for mood / appetite stimulation.
- PT / OT evaluations.
- Encourage PO intake. Speech evaluation
Acute hypoxic respiratory insufficiency likely secondary to atelectasis
-Check a chest x-ray. Wean oxygen as tolerated. Wean to room air.
Azotemia
- BUN = 61 with reported poor oral intake x weeks.
- IVF support and follow for improvement in labs / lytes.
- Encourage PO intake as noted. Improving
Right Humerus Fracture
- Stable. Maintain sling. OT evaluation.
- Stop oxycodone for pain control - ? contributing to worsened confusion / fatigue.
LLE extensive DVT provided due to decrease mobility
-Started on Lovenox-eventually switch to DOAC
Benign Hypertension
- Stable. Continue metoprolol with holding parameters.
Lumbar DDD / Spinal Stenosis
Chronic Ambulatory Dysfunction
- notes that patient has been completely unable to ambulate for some time now.
- PT / OT evaluations.
- CM eval - may benefit from higher level of care chronically?
Unstageable Sacral Pressure injury-POA
-evaluated with wound care team
-cont with wound care for now.
Subclinical hyperthyroidism
-repaet TFTs in 4-5 weeks
Mild hyponatremia likely 2/2 hypovolemia
-improved
DVT Prophylaxis: Subcut LOVENOX
Code Status: DNR
Spouse agreed for hospice. Consult placed.
Anticipated Discharge: > 48 hours
Subjective/Interval History
-
Date of Service: April 19, 2024
awake but not much appetite
Objective Data
-
Labs:
Laboratory Results
04/19/24
07:52
WBC 8.6
Hgb 10.8 L
Hct 32.7 L
Plt Count 248
Sodium 143
Potassium 3.8
Chloride 109 H
Carbon Dioxide 22
BUN 28 H
Creatinine 0.5 L
Glucose 92
Calcium 9.6
Vital Signs:
Vital Signs
Temp Pulse Resp BP Pulse Ox
98.4 F 83 16 145/79 96
04/19/24 07:00 04/19/24 09:17 04/19/24 07:00 04/19/24 09:17 04/19/24 07:00
I&O
04/18/24 04/19/24 04/20/24
06:59 06:59 06:59
Intake Total 550 / 550
Output Total 850 / 850 450 / 450
Balance -850 / -850 100 / 100
Data Reviewed
-
Total Time Spent with Patient (in minutes): 53
--- NOTE | 2024-04-19 12:43 | HOSPNOTE ---
Met with Isreal, discussed hospice services at length, explaining that services would be provided at [facility] in the [facility]. Provided literature and explained our services. states that [facility] hospice provides services at
[facility] but he has been happy with [facility] services in the past. Hospice nurse explained choice and he can decide who he would like to be his hospice providers. He wants time to think about hospice. Nurse explained that the hospital would
want to transfer her by the beginning of week. He has our number for any additional questions.
--- NOTE | 2024-04-19 13:23 | CM ---
Chart reviewed for d/c planning. auto rebuilder met w/ pt's spouse providing hospice information.
Per hospice note, spouse is deciding on whether to utilize [facility] vs [facility], which is used at [facility]
CM to follow up on provider choice
Will need OOH DNR signed
Ambulance transport
Plan: Return to [facility] w/ hospice. Spouse to confirm hospice provider
[2024-04-19] MEDS: VANCOCIN 200 IV (17:29)
[2024-04-19] MEDS: SENOKOT 17.2 MG PO (22:17)
[2024-04-19] MEDS: REMERON 7.5 MG PO (22:17)
[2024-04-20 03:09] VITALS: BP 98/61
[2024-04-20 06:00] VITALS: BMI 24.2
[2024-04-20 07:03] VITALS: BP 136/77
[2024-04-20 08:13] LABS: % Basophils 0.8 % (0-2); % Eosinophils 3.4 % (0-6); % Immature Granulocytes 1.1 % (0-0.5); % Lymphocytes 23.4 % (20.5-51.1); % Monocytes 9.4 % (1.7-9.3); % Neutrophils 61.9 % (42.2-75.2); Absolute Basophils 0.1 10^3/uL (0-0.2); Absolute Eosinophils 0.3 10^3/uL (0-0.7); Absolute Immature Granulocytes 0.1 10^3/uL (0-0.05); Absolute Lymphocytes 1.9 10^3/uL (1.2-3.4); Absolute Monocytes 0.8 10^3/uL (0.1-0.6); Hematocrit 31.8 % (37.0-47.0); Hemoglobin 10.4 g/dL (12.0-16.0); Mean Corp Hgb Conc. 32.7 g/dL (33.0-37.0); Mean Corpuscular Volume 94.6 fL (81.0-99.0); Mean Platelet Volume 10.1 fL (7.4-10.4); Nucleated Red Blood Cells % 0 %; Platelet Count 281 10^3/uL (130-400); Red Blood Cell Count 3.36 10^6/uL (4.20-5.40); Red Cell Dist. Width 13.2 % (11.5-14.5)
[2024-04-20 08:44] LABS: Blood Urea Nitrogen 25 mg/dl (7-17); Calcium 9.3 mg/dl (8.4-10.2); Carbon Dioxide 24 mmol/L (22-30); Chloride 107 mmol/L (98-107); Estimated Creatinine Clearance 50 ml/min; Glucose 87 mg/dl (70-99); Potassium 3.8 mmol/L (3.5-5.1); Sodium 138 mmol/L (135-145); eGFR > 60.00
[2024-04-20] MEDS: TOPROL XL 25 MG PO (08:57)
[2024-04-20] MEDS: DAKIN'S SOLUTION 0.125% 1/4 STRENGTH 473 ML TOPICAL (08:57)
[2024-04-20] MEDS: SANTYL OINTMENT 1 APPLIC TOPICAL (08:57)
[2024-04-20] MEDS: TYLENOL 1000 MG PO ×3 (08:57→23:13)
[2024-04-20] MEDS: NEURONTIN 200 MG PO ×3 (08:57→23:12)
--- NOTE | 2024-04-20 10:03 | HOSPNOTE ---
Hospice continues to follow. Reviewed records and patient at this time still does not meet GIP criteria. Recommend that patient return to [facility] with hospice services. Spouse as of yesterday wanted time to think about hospice. We will follow up
with the spouse tomorrow to see if he has made a decision. More information to follow.
--- NOTE | 2024-04-20 10:25 | PHA.VAN.FU ---
Vancomycin Assessment / Plan
- Assessment
Renal Function: Stable
WBC's are: Trending Down
In the past 24 hrs, patient has been: Afebrile
- Dosing Plan
Continue: Vanc 1000mg IV q24H
- Monitoring Plan
No level(s) ordered at this time: Consider levels after 2/3 1800 dose
- Follow Up
Pharmacy will continue to follow.
Vancomycin Follow UP
- -
Patient Age: 89
Patient Sex: Female
Vancomycin Day #: 3
Indication: Genito-Urinary Tract
Requesting Provider: Tyron Vazquez
Pertinent Antimicrobial Allergies:
nkda
Height / Weight:
Height 5 ft 2 in
Actual Weight 60.073 kg
IBW in k.1
Adjusted BW in k.4
- Vital Signs / Lab Results
Temp Pulse Resp BP Pulse Ox
98.1 F 86 14 136/77 94
04/20/24 07:03 04/20/24 07:03 04/20/24 07:03 04/20/24 07:03 04/20/24 07:03
Lab Results - Hematology
04/18/24 04/19/24 04/20/24
07:16 07:52 07:25
WBC 10.4 8.6 8.0
Lab Results - Chemistry
04/18/24 04/19/24 04/20/24
07:16 07:52 07:25
BUN 35 H 28 H 25 H
Creatinine 0.5 L 0.5 L 0.5 L
Estimated Creat Clear 50 50 50
Microbiology Results
04/16/24 21:50 Blood Culture - Preliminary
Blood/Venous No Growth in 72 hours- Final report to follow
04/16/24 21:50 Blood Culture - Preliminary
Blood/Venous No Growth in 72 hours- Final report to follow
04/16/24 18:06 Urine Culture - Final
Urine Additional testing on request
04/17/24 01:59 MRSA Screen - Final
Nose No Methicillin Resistant Staphylococcus aureus isolated.
[2024-04-20 11:24] VITALS: BP 120/69
[2024-04-20] MEDS: LOVENOX 30 MG SC (11:29)
--- NOTE | 2024-04-20 13:39 | W.PN.HOSP.TC ---
Today's Communication/Plan
-
Await family decision
Continue with antibiotic
Continue with Lovenox
Follow-up with hospice team tomorrow
Assessment / Plan
Assessment / Plan
General: Other (89y F in no acute distress. Awake but confused.
HEENT: Dry MM. Neck supple.
Respiratory: dec bs
Cardiac: S1/S2 and Regular Rhythm; No Murmur
GI: Soft, Non Tender, Non Distended and Normal Bowel Sounds
Musculoskeletal: No Clubbing, No Cyanosis and Other (Edema of the LLE to the knee. No erythema or increased warmth. RUE in sling with ecchymosis of the arm and lateral chest wall.)
Neuro: Awake No Oriented
Psych: No Agitated or Anxious
A/P: Patient is an 89y F with PMH significant for dementia and hypertension who presents to ED from [facility] for evaluation of overall failure to thrive.
Sepsis likely secondary to gram positive UTI
- UA consistent with infection. Chronically incontinent.
- Urine culture with gram-positive bacilli. Discussed with micro lab. Cultures will be sent out identification and susceptibility results
- Follow for any clinical changes. Start patient on vancomycin DC ceftriaxone
LLE extensive DVT provided due to decrease mobility
-Started on Lovenox-eventually switch to DOAC pending decision on hospice or not.
Senile Dementia
Failure to Thrive
Anorexia
Anhedonia
- Symptoms worsening since move into facility per .
- Not sure how much this is related to possible UTI as noted above.
- Trial of mirtazapine for mood / appetite stimulation.
- PT / OT evaluations.
- Encourage PO intake. Speech evaluation recommending regular diet with mildly thick liquid consistency.
Acute hypoxic respiratory insufficiency likely secondary to atelectasis
-Check a chest x-ray. Wean oxygen as tolerated. Wean to room air.
Azotemia
- BUN = 61 with reported poor oral intake x weeks.
- IVF support and follow for improvement in labs / lytes.
- Encourage PO intake as noted. Improving. DC fluids.
Right Humerus Fracture
- Stable. Maintain sling. OT evaluation.
- Stop oxycodone for pain control - ? contributing to worsened confusion / fatigue.
Benign Hypertension
- Stable. Continue metoprolol with holding parameters.
Lumbar DDD / Spinal Stenosis
Chronic Ambulatory Dysfunction
- notes that patient has been completely unable to ambulate for some time now.
- PT / OT evaluations.
- CM eval - may benefit from higher level of care chronically?
Unstageable Sacral Pressure injury-POA
-evaluated with wound care team
-cont with wound care for now.
Subclinical hyperthyroidism
-repaet TFTs in 4-5 weeks
Mild hyponatremia likely 2/2 hypovolemia
-improved
DVT Prophylaxis: Subcut LOVENOX
Code Status: DNR
Hospice discussed with patient spouse. Spouse wants to think it over the weekend. Patient can probably return to SNF on hospice.
Anticipated Discharge: 24 - 48 hours
Subjective/Interval History
-
Date of Service: April 20, 2024
awake
states of mild shoulder pain
Objective Data
-
Labs:
Laboratory Results
04/20/24
07:25
WBC 8.0
Hgb 10.4 L
Hct 31.8 L
Plt Count 281
Sodium 138
Potassium 3.8
Chloride 107
Carbon Dioxide 24
BUN 25 H
Creatinine 0.5 L
Glucose 87
Calcium 9.3
Vital Signs:
Vital Signs
Temp Pulse Resp BP Pulse Ox
98.0 F 76 15 120/69 96
04/20/24 11:24 04/20/24 11:24 04/20/24 11:24 04/20/24 11:24 04/20/24 11:24
I&O
04/19/24 04/20/24 04/21/24
06:59 06:59 06:59
Intake Total 550 / 550 1350 / 1350 240 / 240
Output Total 450 / 450 350 / 350
Balance 100 / 100 1000 / 1000 240 / 240
Data Reviewed
-
Total Time Spent with Patient (in minutes): 55
[2024-04-20 16:00] VITALS: BP 125/72
--- NOTE | 2024-04-20 16:33 | W.PN.UPDATE ---
Update Note
Progress Note Update
Per RN during routine hygiene care patient was noted to have bright red blood per rectum with blood clots. Multiple blood clots were noted. Per RN, it was internal ongoing bleeding. Discussed this with patient Eloy at bedside.
uses talk to text. Prolonged discussion was held with patient . Explained to him that patient with suspected gastrointestinal bleeding which likely exacerbated due to therapeutic Lovenox because of DVT. Explained to him the next step would
require stopping Lovenox, getting stat CT angiogram of the abdomen pelvis. Will require gastrointestinal evaluation for endoscopy and/or colonoscopy or both. Also if with anemia requiring blood transfusion and aggressive resuscitation. All patient
questions were answered and was given enough time to think and process all this information. stated he would not want patient to undergo aggressive heroic measures and stated he agreed with discontinuation of anticoagulation and
transition patient to comfort measures. He wants to talk to hospice team again in the morning. He agreed for comfort measures in the interim. understand the risk of stopping anticoagulation with DVT with risk of pulmonary embolism leading
to cardiopulmonary arrest. once again reiterated he does not want any aggressive measures including CAT scan, endoscopy or colonoscopy, cardiopulmonary resuscitation and/or intubation. Will transition patient to comfort measures.
d/w with patient RN.
[2024-04-20] MEDS: VANCOCIN 200 IV (17:13)
[2024-04-20] MEDS: REMERON 7.5 MG PO (23:12)
[2024-04-20] MEDS: SENOKOT 17.2 MG PO (23:12)
[2024-04-20 23:28] VITALS: BP 119/71
[2024-04-21 05:29] VITALS: BMI 23.7
[2024-04-21 07:30] VITALS: BP 124/64
[2024-04-21] MEDS: NEURONTIN 200 MG PO ×2 (08:43→15:49)
[2024-04-21] MEDS: DAKIN'S SOLUTION 0.125% 1/4 STRENGTH 1 ML TOPICAL (08:43)
[2024-04-21] MEDS: TYLENOL 1000 MG PO ×2 (08:44→15:51)
[2024-04-21] MEDS: SANTYL OINTMENT 1 APPLIC TOPICAL (08:44)
[2024-04-21] MEDS: TOPROL XL 25 MG PO (08:44)
[2024-04-21 09:20] LABS: % Basophils 0.8 % (0-2); % Eosinophils 4.1 % (0-6); % Immature Granulocytes 1.5 % (0-0.5); % Lymphocytes 27.3 % (20.5-51.1); % Monocytes 9.3 % (1.7-9.3); Absolute Basophils 0.1 10^3/uL (0-0.2); Absolute Eosinophils 0.3 10^3/uL (0-0.7); Absolute Immature Granulocytes 0.1 10^3/uL (0-0.05); Absolute Lymphocytes 2.1 10^3/uL (1.2-3.4); Absolute Monocytes 0.7 10^3/uL (0.1-0.6); Absolute Neutrophils 4.3 10^3/uL (1.4-6.5); Hematocrit 28.5 % (37.0-47.0); Hemoglobin 9.3 g/dL (12.0-16.0); Mean Corp Hgb Conc. 32.6 g/dL (33.0-37.0); Mean Corpuscular Hgb 30.7 pg (27.0-31.0); Mean Corpuscular Volume 94.1 fL (81.0-99.0); Mean Platelet Volume 10.4 fL (7.4-10.4); Nucleated Red Blood Cells % 0 %; Platelet Count 251 10^3/uL (130-400); Red Blood Cell Count 3.03 10^6/uL (4.20-5.40); Red Cell Dist. Width 13.2 % (11.5-14.5); White Blood Cell Count 7.6 10^3/uL (4.8-10.8)
[2024-04-21 09:55] LABS: Blood Urea Nitrogen 25 mg/dl (7-17); Calcium 8.8 mg/dl (8.4-10.2); Carbon Dioxide 25 mmol/L (22-30); Chloride 106 mmol/L (98-107); Estimated Creatinine Clearance 50 ml/min; Glucose 78 mg/dl (70-99); Potassium 4.1 mmol/L (3.5-5.1); Sodium 139 mmol/L (135-145); eGFR > 60.00
--- NOTE | 2024-04-21 10:07 | PHA.VAN.FU ---
Vancomycin Assessment / Plan
- Assessment
Renal Function: Stable
WBC's are: WNL
In the past 24 hrs, patient has been: Afebrile
Concomitant Antimicrobials: none
- Dosing Plan
Continue: vancomycin 1000 mg q24h - first dose 04/19 1800
- Monitoring Plan
Trough Level: trough only at 1730 tonight
- Follow Up
Pharmacy will continue to follow.
Vancomycin Follow UP
- -
Patient Age: 89
Patient Sex: Female
Vancomycin Day #: 4
Indication: Genito-Urinary Tract
Requesting Provider: Tyron Vazquez
Pertinent Antimicrobial Allergies:
nkda
Height / Weight:
Height 5 ft 2 in
Actual Weight 58.604 kg
IBW in k.1
Adjusted BW in k.4
- Vital Signs / Lab Results
Temp Pulse Resp BP Pulse Ox
98.9 F 91 18 124/64 94
04/21/24 07:30 04/21/24 07:30 04/21/24 07:30 04/21/24 07:30 04/21/24 07:30
Lab Results - Hematology
04/19/24 04/20/24 04/21/24
07:52 07:25 08:25
WBC 8.6 8.0 7.6
Lab Results - Chemistry
04/19/24 04/20/24 04/21/24
07:52 07:25 08:25
BUN 28 H 25 H 25 H
Creatinine 0.5 L 0.5 L 0.5 L
Estimated Creat Clear 50 50 50
Microbiology Results
04/16/24 21:50 Blood Culture - Preliminary
Blood/Venous No Growth in 4 days- Final report to follow
04/16/24 21:50 Blood Culture - Preliminary
Blood/Venous No Growth in 4 days- Final report to follow
[2024-04-21 11:23] LABS: COVID-19 Antigen Negative (Negative)
--- NOTE | 2024-04-21 12:21 | CM ---
call center manager reviewed patient's chart and patient's spouse has made a final decision on plan for patient plan is for patient to return to the [facility] today on hospice, patient's spouse was reviewing [facility] and [facility] hospice and
has selected [facility]. Patient will go by ambulance with a 2:30pm cotton picker.
[facility] with [facility] Hospice today, OOH DNR to be completed.
[facility]
Report [phone]
[2024-04-21 12:32] VITALS: BP 120/60
--- NOTE | 2024-04-21 15:46 | HOSPNOTE ---
The patient will go back to [facility] with hospice. CM updated and Attending aware. Transport is scheduled for 2:30pm. Once patient gets back to the [facility] we will admit onto hospice services.
--- NOTE | 2024-04-21 16:43 | W.PN.HOSP.TC ---
Today's Communication/Plan
-
d/c planning for hospice
Assessment / Plan
Assessment / Plan

Sepsis likely secondary to gram positive UTI
- UA consistent with infection. Chronically incontinent.
- Urine culture with gram-positive bacilli. Discussed with micro lab. Cultures will be sent out identification and susceptibility results
- Follow for any clinical changes. Start patient on vancomycin DC ceftriaxone
LLE extensive DVT provided due to decrease mobility
-Started on Lovenox-eventually switch to DOAC pending decision on hospice or not.
Senile Dementia
Failure to Thrive
Anorexia
Anhedonia
- Symptoms worsening since move into facility per .
- Not sure how much this is related to possible UTI as noted above.
- Trial of mirtazapine for mood / appetite stimulation.
- PT / OT evaluations.
- Encourage PO intake. Speech evaluation recommending regular diet with mildly thick liquid consistency.
Acute hypoxic respiratory insufficiency likely secondary to atelectasis
-Check a chest x-ray. Wean oxygen as tolerated. Wean to room air.
Azotemia
- BUN = 61 with reported poor oral intake x weeks.
- IVF support and follow for improvement in labs / lytes.
- Encourage PO intake as noted. Improving. DC fluids.
Right Humerus Fracture
- Stable. Maintain sling. OT evaluation.
- Stop oxycodone for pain control - ? contributing to worsened confusion / fatigue.
Benign Hypertension
- Stable. Continue metoprolol with holding parameters.
Lumbar DDD / Spinal Stenosis
Chronic Ambulatory Dysfunction
- notes that patient has been completely unable to ambulate for some time now.
- PT / OT evaluations.
- CM eval - may benefit from higher level of care chronically?
Unstageable Sacral Pressure injury-POA
-evaluated with wound care team
-cont with wound care for now.
Subclinical hyperthyroidism
-repaet TFTs in 4-5 weeks
Mild hyponatremia likely 2/2 hypovolemia
-improved
DVT Prophylaxis: Subcut LOVENOX
Code Status: DNR

More than 30 minutes spent in discharge including
Final examination of the patient
Summarizing hospital stay
Instructions for continuing care to all relevant caregivers
Preparation of discharge records, prescriptions, and referral forms
Total time spent (in minutes): 38 mins
Anticipated Discharge: Today
Subjective/Interval History
-
Date of Service: April 21, 2024
Denies of issues overnight
Resting comfortably in bed
Objective Data
-
Labs:
Laboratory Results
04/21/24
08:25
WBC 7.6
Hgb 9.3 L
Hct 28.5 L
Plt Count 251
Sodium 139
Potassium 4.1
Chloride 106
Carbon Dioxide 25
BUN 25 H
Creatinine 0.5 L
Glucose 78
Calcium 8.8
Vital Signs:
Vital Signs
Temp Pulse Resp BP Pulse Ox
98.1 F 83 16 120/60 93
04/21/24 12:32 04/21/24 12:32 04/21/24 12:32 04/21/24 12:32 04/21/24 12:32
I&O
04/20/24 04/21/24 04/22/24
06:59 06:59 06:59
Intake Total 1350 / 1350 840 / 840
Output Total 350 / 350 410 / 410
Balance 1000 / 1000 430 / 430
Review of Systems
-
Unable to obtain full review of systems at this time due to: Dementia
Physical Exam
-
General: Comfortable
HEENT: Oxygen
Respiratory: Clear to Auscultation
Cardiac: Regular Rhythm and S1/S2; Negative Murmur or Rub
GI: Soft, Nontender and Nondistended
Musculoskeletal: No Edema
Neuro: Awake, Alert, Oriented, No Motor Deficits and Nonfocal/Grossly Intact
Psych: Calm
--- NOTE | 2024-04-22 16:09 | W.DCSUMMARY ---
Discharge Summary
Discharge Data
Date of Admission: 04/16/24
Date of Discharge: 04/21/24
-
Pending Results: No
Hospital Course
Discharging Physician : Dr Sarwat Francisco
Disposition : Hospice
Primary care physician : Dr Flor Lyons
Principal Discharge diagnosis :
Gram-positive bacilli urinary tract infection sepsis
Sepsis
Left lower extremity venous thrombosis
Right humeral neck fracture
Chronic Discharge diagnosis :
Senile dementia
Failure to thrive
Essential hypertension
Spinal stenosis
Sacral pressure injury -unstageable
Subclinical hyperthyroidism
Hospital Course :
Patient is 89-year-old female with admission past medical history came to ER with having new onset of generalized weakness/confusion and failure to thrive. Patient is nonambulatory at baseline and requires help with ADLs. In ER on initial workup
patient noted to be septic and possible source was considered to be urinary tract infection. Patient was started on broad-spectrum antibiotic. Urine culture later grew gram-positive bacilli which microbiology lab was unable to identify further.
Patient despite being treated with empiric antibiotics continue and lethargic. Patient was diagnosed to having new left lower extremity DVT as well. With history of senile dementia and failure to thrive goal of care discussion was held and spouse
agreed for patient to be transition to hospice care. Patient was discharged to nursing facility for hospice care.
Important imaging findings :
None
Procedure findings :
None
Discharge Plan
-
Patient Disposition: Halfway/SNF
Discharge Diagnosis/Procedures: Sepsis/Gram positive UTI/Left leg DVT/Senile dementia/Acute hypoxic respiratory insufficiency
Condition: Fair
Diet: Regular
Activity: As tolerated
Driving Restrictions: No driving
Activity Restrictions/Additional Instructions:
Wound Care Instructions Sacral wound- Clean with 1/4 strength Dakins. Apply fatou thick layer of Santyl and cover with adaptic and dry dressing. Change daily and PRN drainage.
Follow up at wound care center call for an appointment.
Referrals:
Flor Hodges MD [Family Provider] -
Prescriptions:
New
mirtazapine 7.5 mg Tablet
7.5 mg PO HS Qty: 30 0RF
lorazepam [Ativan] 0.5 mg tablet
0.5 mg PO TID PRN (Reason: anxiety) Qty: 14 0RF
tramadol 50 mg tablet
50 mg PO Q8H PRN (Reason: mod sev pain) Qty: 14 0RF
Continued
acetaminophen 500 mg Tablet
1,000 mg PO TID
gabapentin 100 mg Capsule
200 mg PO TID
metoprolol succinate [Toprol XL] 25 mg Tablet Extended Release 24 Hr
25 mg PO DAILY
Discontinued
polyethylene glycol 3350 [Miralax] 17 gram Powder In Packet
17 g PO DAILY
amlodipine 5 mg Tablet
5 mg PO QPM
omeprazole 20 mg Capsule,Delayed Release(Dr/Ec)
20 mg PO DAILY
oxycodone 5 mg Tablet
5 mg PO TID
duloxetine [Cymbalta] 30 mg Capsule,Delayed Release(Dr/Ec)
30 mg PO DAILY
calcium carbonate-vitamin D3 [Calcium 600 + D(3)] 600 mg-10 mcg (400 unit) Tablet
1 tab PO DAILY
cholecalciferol (vitamin D3) 50 mcg (2,000 unit) Tablet
50 mcg PO DAILY
PreserVision AREDS-2 250-90-40-1 mg Capsule
1 tab PO DAILY
Centrum Adults 12 mcg Tablet,Chewable
1 tab PO DAILY
nystatin 100,000 unit/gram Powder
1 applic TOPICAL BID
Rx Instructions:
fungal rash [place] area
Discharge Orders:
Discharge Patient (As Directed); Ordered 04/21/24
Ordered By: Sarwat Francisco
Discharge Date and Time
Discharge Date/Time: 04/21/24 16:45
Print Language: [id number]
== END 2024-04-21 16:45 | DRG 872 ==
LOC: 4 WEST ACU 22:42
PROVIDERS: Hospitalist; ADMITTING PHYSICIAN Hospitalist; ATTENDING PHYSICIAN Hospitalist; CONSULT PHYSICIAN Internal Medicine Hospice and Palliative Medicine; EMERGENCY PHYSICIAN Emergency Medicine; FAMILY PHYSICIAN Internal Medicine Geriatric Medicine
DX: A41.9 Sepsis, unspecified organism (principal); N39.0 Urinary tract infection, site not specified; F03.93 Unspecified dementia, unspecified severity, with mood disturbance; J98.11 Atelectasis; E87.1 Hypo-osmolality and hyponatremia; I82.402 Acute embolism and thrombosis of unspecified deep veins of left lower extremity; D68.32 Hemorrhagic disorder due to extrinsic circulating anticoagulants; K92.2 Gastrointestinal hemorrhage, unspecified; F05 Delirium due to known physiological condition; R62.7 Adult failure to thrive; R09.02 Hypoxemia; R06.89 Other abnormalities of breathing; I10 Essential (primary) hypertension; M51.369 Other intervertebral disc degeneration, lumbar region without mention of lumbar back pain or lower extremity pain; M48.00 Spinal stenosis, site unspecified; L89.159 Pressure ulcer of sacral region, unspecified stage; E05.90 Thyrotoxicosis, unspecified without thyrotoxic crisis or storm; E86.1 Hypovolemia; Z66 Do not resuscitate; Z87.891 Personal history of nicotine dependence; K21.9 Gastro-esophageal reflux disease without esophagitis; Z79.891 Long term (current) use of opiate analgesic; E78.00 Pure hypercholesterolemia, unspecified; Z11.52 Encounter for screening for COVID-19; E86.0 Dehydration
CPT/HCPCS: 51701; 70450; 71046; 80048; 80053; 81003; 81015; 83605; 83735; 84439; 84443; 85025; 85027; 87040; 87070; 87086; 87811; 92610; 93005; 93971; 96361; 96374; 97165; 99285